=== PATIENT | male | born 1980 | race African-American/Black ===

== ENCOUNTER 2024-12-01 12:28 | Emergency (ER) | payer OTHER ==
[~2024-12-01] VITALS: Ht 160 cm; Wt 77.0 kg
[2024-12-01 12:30] VITALS: TEMP 36.6; O2SAT 99
[2024-12-01] MEDS ORDERED: TRIMO EACHEYE (12:53)
[2024-12-01 13:22] LABS: BASOPHILS % 0.5 % (0.0-2.0); EOSINOPHILS % 1.2 % (0.0-5.0); HEMATOCRIT. 37.5 % (42.0-52.0); HEMOGLOBIN. 12.9 g/dL (14.0-18.0); LYMPHOCYTES % 42.9 % (20.0-50.0); MEAN PLATELET VOLUME 7.8 fl (7.4-10.4); MONOCYTES % 3.8 % (2.0-8.0); NEUTROPHILS % 51.6 % (40.0-76.0); PLATELET 226 x1000/uL (130-400); RED BLOOD CELL COUNT 4.12 mill/uL (4.7-6.1); RED CELL DISTRIBUTION WIDTH 14.9 % (11.6-14.6)
[2024-12-01 13:53] LABS: CREATININE 0.7 mg/dL (0.6-1.3)
[2024-12-01 13:54] LABS: UREA NITROGEN BLOOD 10 mg/dL (9-23)
[2024-12-01 13:55] LABS: ASPARTATE AMINOTRANSFERASE 53 IU/L (<34)
[2024-12-01 13:56] LABS: BILIRUBIN TOTAL 0.5 mg/dL (0.1-1.0); PROTEIN TOTAL 7.0 g/dL (6.0-8.3)
[2024-12-01 19:02] VITALS: BP 143/92; PULSE 99; RESP 16; O2SAT 100
== END 2024-12-01 19:05 | disposition home or self-care (01) ==
LOC: ER 12:28
DX: F10.129 Alcohol abuse with intoxication, unspecified (principal); Y90.9 Presence of alcohol in blood, level not specified
CPT/HCPCS: 36415; 80053; 83735; 85025; 99283

== ENCOUNTER 2025-01-10 16:46 | Emergency (ER) | payer OTHER ==
[~2025-01-10] VITALS: Ht 172.7 cm; Wt 82.0 kg
[~2025-01-10 16:46] MED LIST: TRIMO EACHEYE
[2025-01-10 16:54] VITALS: BP 133/82; PULSE 97; RESP 18; TEMP 36.7; O2SAT 98
[2025-01-10] MEDS ORDERED: IBUPROFEN 600MG TABLET PO ONE (17:00)
== END 2025-01-10 17:15 | disposition home or self-care (01) ==
LOC: ER 16:46
DX: F10.129 Alcohol abuse with intoxication, unspecified (principal); Z59.00 Homelessness unspecified; Y90.9 Presence of alcohol in blood, level not specified
CPT/HCPCS: 99283

== ENCOUNTER 2025-01-10 21:36 | Emergency (ER) | payer OTHER ==
[~2025-01-10] VITALS: Ht 167.6 cm; Wt 73.0 kg
[2025-01-10 21:38] VITALS: BP 143/86; PULSE 86; RESP 18; TEMP 37.1; O2SAT 98
== END 2025-01-10 21:47 | disposition home or self-care (01) ==
LOC: ER 21:36
DX: F10.129 Alcohol abuse with intoxication, unspecified (principal); Y90.9 Presence of alcohol in blood, level not specified
CPT/HCPCS: 99283

== ENCOUNTER 2025-01-14 14:35 | Emergency (ER) | payer OTHER ==
[~2025-01-14] VITALS: Ht 170.2 cm; Wt 77.0 kg
[2025-01-14 14:36] VITALS: TEMP 37.1; O2SAT 98
[2025-01-14] MEDS ORDERED: OLAN-37 PO (14:39)
[2025-01-14 16:20] VITALS: BP 137/98; PULSE 98; RESP 16
[2025-01-14] MEDS: KETOROLAC 30MG/ML VIAL IM ONE (16:20)
[2025-01-14] MEDS ORDERED: METH4TAB95 MT (17:31)
== END 2025-01-14 17:43 | disposition left against medical advice (07) ==
LOC: ER 15:06
DX: B34.9 Viral infection, unspecified (principal); F10.20 Alcohol dependence, uncomplicated; Z79.899 Other long term (current) drug therapy; Z59.00 Homelessness unspecified; Y90.9 Presence of alcohol in blood, level not specified
CPT/HCPCS: 99283; 71045; 96372; J1885